=== PATIENT | male | born 1930 ===

== ENCOUNTER 2018-04-22 13:40 | Emergency (ER) | payer MEDICARE, OTHER ==
[~2018-04-22] VITALS: Wt 62.5 kg
[2018-04-22] MEDS ORDERED: SOD CHLORIDE 0.9% 1,000 ML IV STA (14:41)
--- NOTE | 2018-04-22 16:28 | ERD ---
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 The patient was at adult daycare and they called EMS. When EMS arrived they stated the patient was slightly hypotensive. They gave the patient a fluid bolus in the brought the patient to the ER. On my exam the patient denies any complaints at this time. He denies any chest pain, fever, shortness of breath, abdominal pain, nausea, vomiting or weakness. Patient denies any headaches ROS All systems reviewed and are negative except as per history of present illness. Allergies Allergies: Coded Allergies: No Known Allergy (Unverified , 04/22/18) PMhx/Soc Medical and Surgical Hx: pt denies Surgical Hx Hx Cardiac Disorders: Yes (htn) Hx Psychiatric Problems: No Hx Miscellaneous Medical Probl: No Hx Alcohol Use: No Hx Substance Use: No Hx Tobacco Use: No Smoking Status: Never smoker Physical Exam Vitals Vital Signs Date Temp Pulse Resp B/P (MAP) Pulse Ox O2 O2 Flow FiO2 Time Delivery Rate 04/22/18 72 19 144/64 100 Room Air 16:00 (90) 04/22/18 Nasal 2 14:50 Cannula 04/22/18 75 19 136/57 100 Room Air 14:40 (83) 04/22/18 98.3 65 19 130/62 96 Room Air 14:17 (84) 04/22/18 98.3 64 19 127/60 96 14:00 (82) Physical Exam INITIAL VITAL SIGNS: Reviewed by me GENERAL: The patient is well developed and appropriate for usual state of health in no apparent distress HEENT: Pupils equal, round, and reactive to light. EOMI. There is no scleral icterus. NECK: C-spine is soft and supple, there is no meningismus. There is no cervical lymphadenopathy. LUNGS: Clear to auscultation bilaterally. There are no rales, wheezes or rhonchi. HEART: Regular rate and rhythm, no murmurs, clicks, rubs or gallops. ABDOMEN: Soft, non-tender, non-distended. There are bowel sounds in all four quadrants. No rebound or guarding. EXTREMITIES: There is no peripheral cyanosis or edema. No focal swelling or erythema. NEUROLOGICAL: The patient moves all four extremities with 5/5 strength. Cranial nerves II - XII are intact. Normal gait. Alert and oriented SKIN: There is no apparent rash or petechiae. HEME/LYMPHATIC: There is no evidence of excessive bruising or lymphedema. PSYCHIATRIC: The patient does not appear anxious or depressed. Result Diagram: 04/22/18 1502 04/22/18 1502 Results 24 hrs Laboratory Tests Test 04/22/18 15:02 White Blood Count 7.8 10^3/ul Red Blood Count 3.58 10^6/ul Hemoglobin 11.1 g/dl Hematocrit 33.0 % Mean Corpuscular Volume 92.2 fl Mean Corpuscular Hemoglobin 31.0 pg Mean Corpuscular Hemoglobin Concent 33.6 g/dl Red Cell Distribution Width 12.8 % Platelet Count 214 10^3/UL Mean Platelet Volume 9.6 fl Immature Granulocytes % 0.300 % Neutrophils % 82.9 % Lymphocytes % 9.4 % Monocytes % 6.7 % Eosinophils % 0.6 % Basophils % 0.1 % Nucleated Red Blood Cells % 0.0 /100WBC Immature Granulocytes # 0.020 10^3/ul Neutrophils # 6.4 10^3/ul Lymphocytes # 0.7 10^3/ul Monocytes # 0.5 10^3/ul Eosinophils # 0.1 10^3/ul Basophils # 0.0 10^3/ul Nucleated Red Blood Cells # 0.0 10^3/ul Sodium Level 134 mmol/L Potassium Level 4.0 mmol/L Chloride Level 95 mmol/L Carbon Dioxide Level 27 mmol/L Anion Gap 12 Blood Urea Nitrogen 16 mg/dl Creatinine 1.20 mg/dl Est Glomerular Filtrat Rate mL/min mL/min Glucose Level 153 mg/dl Calcium Level 9.4 mg/dl Troponin I < 0.012 ng/ml Current Medications Medications Dose Sig/Anna Start Time Status Last (Trade) Ordered Route PRN Stop Time Admin Dose Reason Admin Sodium 1,000 ml @ Q1H STAT 04/22/18 DC 04/22/18 Chloride 1,000 mls/hr IV 14:41 14:46 04/22/18 15:40 Procedures/MDM EKG: Rate/Rhythm: [Normal Sinus Rhythm with first-degree AV block] QRS, ST, T-waves: [No changes consistent w/ acute ischemia] Impression: Sinus rhythm with first-degree AV block Chest X-ray 1V Interpreted by me: Soft Tissue: No acute abnormalities Bones: No acute abnormalities Mediastinum/Cardiac Silhouette/Lungs: [No acute abnormalities] This 87-year-old male presents to the emergency room for evaluation of generalized weakness and hypotension. On my exam the patient's blood pressure is 144/88. He has no complaints and his EKG is nonischemic. His chest x-ray is clear and lab work is within normal limits at this time including a troponin. The patient is up in the emergency room ambulating without difficulty, and he has no focal neurological deficits at this time. Given this patient's nonfocal examination with normal vital signs I do not feel the she will need admission to the hospital. The patient states he is feeling much better and is requesting to go home. The patient could have had presyncopal event and is currently hemodynamically stable. He will be discharged with strict return precautions. Departure Diagnosis: Primary Impression: Pre-syncope Additional Impression: Normocytic anemia Condition: Fair JENIFFER OCHOA DO Apr 22, 2018 16:28
[2018-04-22 17:05] VITALS: BP 100/62; PULSE 88; RESP 18
== END 2018-04-22 17:00 | disposition home or self-care (01) ==
LOC: E/R 13:40
DX: D64.9 Anemia, unspecified (principal); R55 Syncope and collapse; I10 Essential (primary) hypertension
CPT/HCPCS: 36415; 71045; 80048; 84484; 85025; 93005; 99285; J7030